=== PATIENT | female | born 1955 | race Two or more races ===

== ENCOUNTER 2018-09-15 06:43 | Outpatient (CLI) | payer OTHER | END 2018-09-15 11:15 | disposition home or self-care (01) | LOC: LAB 06:43 | DX: E11.9 Type 2 diabetes mellitus without complications (principal); I10 Essential (primary) hypertension; E03.8 Other specified hypothyroidism; E78.2 Mixed hyperlipidemia; M81.0 Age-related osteoporosis without current pathological fracture ==

== ENCOUNTER 2018-11-11 07:33 | Outpatient (CLI) | payer OTHER | END 2018-11-11 07:41 | disposition home or self-care (01) | LOC: LAB 07:33 | DX: E03.8 Other specified hypothyroidism (principal) ==

== ENCOUNTER → 2019-02-02 07:50 | Outpatient (CLI) | payer OTHER | END | disposition home or self-care (01) | LOC: LAB 07:50 | DX: I10 Essential (primary) hypertension (principal); E11.9 Type 2 diabetes mellitus without complications; E03.8 Other specified hypothyroidism; E78.2 Mixed hyperlipidemia ==